=== PATIENT | female | born 1980 | race Caucasian/White ===

== ENCOUNTER → 2017-11-29 | Outpatient (CLI) | payer OTHER | LOC: M RAD 16:29 | DX: J01.01 Acute recurrent maxillary sinusitis (principal) | CPT/HCPCS: 70486 ==

== ENCOUNTER → 2018-02-27 | Outpatient (CLI) | payer OTHER ==
--- NOTE | 2018-02-27 17:00 | REP ---
MAXILLOFACIAL CT WITHOUT CONTRAST: HISTORY: Chronic frontal sinusitis. COMPARISON: 11/29/2017. The patient is status-post bilateral uncinectomy, partial ethmoidectomy and partial right middle and left inferior nasal turbinectomy. Mild mucosal thickening is present in the right maxillary sinus. Minimal mucosal thickening is present in the right ethmoid sinus. Mucosal thickening is present in the left frontal sinus. There is complete opacification of the left frontal sinus . The remaining sinuses are clear. The middle and right inferior nasal turbinates are partially paradoxical. The nasal septum is midline. The cribriform plate, medial albert of the orbits and optic canals are intact. There is aeration of the right anterior clinoid process. The carotid canals form a segment of the posterolateral albert of the sphenoid sinus. IMPRESSION: 1. Postoperative change as described above. 2. Sinus mucosal thickening as described above. Electronically Signed by Jay Crandall MD 02/28/2018 08:17 A
== END ==
LOC: M RAD 15:49
PROVIDERS: ATTEND Otolaryngology
DX: J32.1 Chronic frontal sinusitis (principal)

== ENCOUNTER 2018-08-09 19:05 | Emergency (ER) | payer OTHER ==
[~2018-08-09] VITALS: Ht 167.6 cm; Wt 63.6 kg
[2018-08-09] MEDS ORDERED: hygroton PO (19:13)
[2018-08-09] MEDS ORDERED: PYRI1TAB5 PO (19:13)
[2018-08-09] MEDS ORDERED: EXCETAB33 PO (19:13)
[2018-08-09] MEDS ORDERED: CYMB1CAP4 PO (19:13)
[2018-08-09] MEDS ORDERED: MACR100C43 PO (19:13)
[2018-08-09] MEDS ORDERED: hy (19:13)
[2018-08-09 19:53] LABS: BASO % 1.2 % (0.0-1.0); EOS # 0.3 10^3/uL (0.0-0.50); EOS % 7.5 % (0.0-3.0); HEMATOCRIT 34.4 % (36.0-47.0); HEMOGLOBIN 11.4 g/dl (12.0-15.5); LYMPH % 28.4 % (24.0-44.0); MEAN CORPUSCULAR HEMOGLOBIN 26.3 pg (27.0-33.0); MEAN CORPUSCULAR HGB CONC 33.1 g/dl (32.0-36.5); MEAN CORPUSCULAR VOLUME 79.4 fl (80.0-96.0); MONO # 0.6 10^3/uL (0.0-0.8); MONO % 17.6 % (0.0-5.0); NEUTROPHILS # 1.5 10^3/uL (1.8-7.7); PLATELET COUNT, AUTOMATED 204 10^3/uL (150-450); RED BLOOD COUNT 4.33 10^6/uL (4.00-5.40); WHITE BLOOD COUNT 3.4 10^3/uL (4.0-10.0)
[2018-08-09 20:16] LABS: APPEARANCE, URINE MANUAL HAZY (CLEAR)
[2018-08-09 20:17] LABS: COLOR, URINE MANUAL ORANGE (YELLOW); SPECIFIC GRAVITY,URINE MANUAL 1.015 (1.002-1.035)
[2018-08-09 20:27] LABS: BACTERIA, URINE SMALL AMOUNT; RBC, URINE TNTC /hpf (0-3)
[2018-08-09 20:28] LABS: SQUAMOUS EPITHELIAL CELL URINE MOD AMOUNT /hpf (SMALL AMT)
[2018-08-09 20:31] LABS: ALBUMIN 3.5 GM/DL (3.2-5.2); ALT/SGPT 52 U/L (12-78); BILIRUBIN,DIRECT < 0.1 MG/DL (0.0-0.2); BILIRUBIN,TOTAL 0.4 MG/DL (0.2-1.0); BLOOD UREA NITROGEN 22 MG/DL (7-18); CALCIUM LEVEL 9.4 MG/DL (8.5-10.1); CARBON DIOXIDE LEVEL 30 MEQ/L (21-32); CHLORIDE LEVEL 102 MEQ/L (98-107); CREATININE FOR GFR 1.14 MG/DL (0.55-1.30); GLOMERULAR FILTRATION RATE 56.8 (>60); GLUCOSE, FASTING 102 MG/DL (70-100); LIPASE 262 U/L (73-393); POTASSIUM SERUM 3.1 MEQ/L (3.5-5.1); SODIUM LEVEL 139 MEQ/L (136-145); TOTAL PROTEIN 7.7 GM/DL (6.4-8.2)
[2018-08-09 21:10] LABS: HCG, SERUM QUALITATIVE NEGATIVE (NEGATIVE)
[2018-08-09] MEDS ORDERED: ONDANSETRON 4MG/2ML VIAL (J2405) IV ONE (21:15)
[2018-08-09] MEDS ORDERED: KETOROLAC 30 MG/ML VIAL (J1885) IV ONE (21:15)
[2018-08-09] MEDS ORDERED: NS 1,000 ML IV ONE (21:45)
--- NOTE | 2018-08-09 23:01 | REPVR ---
EXAM: US Pelvis Complete, Transabdominal EXAM DATE/TIME: 08/09/2018 9:54 PM CLINICAL HISTORY: 38 years old, female; Abdominal pain; Left lower quadrant; Additional info: Pelvic pain TECHNIQUE: Imaging protocol: Real-time transabdominal pelvic ultrasound with image documentation. Complete exam. COMPARISON: No relevant prior studies available. FINDINGS: Uterus/cervix: Anteverted uterus deviated to the right measuring 9.1 x 3.4 x 4.7 cm. Endometrial stripe is normal measuring 1.4 mm. Right adnexa: Right ovary is unremarkable measuring 2.8 x 1.7 x 2.9 cm. Normal vascular flow. No evidence of torsion. Left adnexa: Left ovary is unremarkable measuring 3.3 x 0.9 x 2.7 cm.Normal vascular flow. No evidence of torsion. Free fluid: No free fluid. IMPRESSION: Unremarkable exam. Electronically signed by: Irena Toure On 08/09/2018 23:00:50 PM
--- NOTE | 2018-08-09 23:07 | REPVR ---
EXAM: CT Abdomen and Pelvis Without Contrast EXAM DATE/TIME: 08/09/2018 9:54 PM CLINICAL HISTORY: 38 years old, female; Abdominal pain; Flank; Left; Prior surgery; Additional info: History of kidney stones, RO stone TECHNIQUE: Imaging protocol: Axial computed tomography images of the abdomen and pelvis without contrast. Coronal and sagittal reformatted images were created and reviewed. Radiation optimization: All CT scans at this facility use at least one of these dose optimization techniques: automated exposure control; mA and/or kV adjustment per patient size (includes targeted exams where dose is matched to clinical indication); or iterative reconstruction. COMPARISON: No relevant prior studies available. FINDINGS: Lungs: Multiple lung nodules, left greater than right. On the right side largest nodule is with irregular margins measuring up to 7 mm and on the left side largest nodules measuring up to 6 mm. Comparison with prior studies and absence of prior studies further evaluation with CT chest is recommended. Liver: Normal. No mass. Gallbladder and bile ducts: Normal. No calcified stones. No ductal dilation. Pancreas: Normal. No ductal dilation. Spleen: Normal. No splenomegaly. Adrenals: Normal. No mass. Kidneys and ureters: Multiple bilateral nonobstructing renal stones measuring up to 2 mm. No evidence of hydroureteronephrosis. No hydroureteronephrosis. No perinephric stranding. Stomach and bowel: Moderate fecal loading in the rectum and colon. No bowel dilatation or obstruction. No bowel dilatation or obstruction. Appendix: Normal appendix. Intraperitoneal space: Normal. No free air. No significant fluid collection. Vasculature: Normal. No abdominal aortic aneurysm. Lymph nodes: Normal. No enlarged lymph nodes. Bladder: Sone in the base of the bladder on the left side measuring about 4.6 mm. Reproductive: Unremarkable as visualized. Bones/joints: A sclerotic focus in the left pubic symphysis measuring approximately 10.4 mm cyst likely represent bone island. Soft tissues: Unremarkable. IMPRESSION: 1. Sone in the base of the bladder on the left side measuring about 4.6 mm. 2. Multiple bilateral nonobstructing renal stones measuring up to 2 mm. No evidence of hydroureteronephrosis. 3. Multiple lung nodules, left greater than right. On the right side largest nodule is with irregular margins measuring up to 7 mm and on the left side largest nodules measuring up to 6 mm. Comparison with prior studies and absence of prior studies further evaluation with CT chest is recommended. Electronically signed by: Irena Toure On 08/09/2018 23:07:34 PM
[2018-08-10] MEDS ORDERED: FLOM0.4C39 PO (01:18)
[2018-08-10 01:24] VITALS: BP 123/83
--- NOTE | 2018-08-10 08:27 | ED PDOC ---
Post-Departure Follow-Up ct abd/p faxed to rahul aleman for fu Tracy Loya MD Aug 10, 2018 08:27
== END 2018-08-10 01:27 | disposition home or self-care (01) ==
LOC: M ED 19:05
DX: N20.0 Calculus of kidney (principal); R91.1 Solitary pulmonary nodule; I10 Essential (primary) hypertension; F41.9 Anxiety disorder, unspecified; Z79.899 Other long term (current) drug therapy; Z79.82 Long term (current) use of aspirin; Z88.1 Allergy status to other antibiotic agents; Z88.5 Allergy status to narcotic agent
CPT/HCPCS: 74176; 76856; 80048; 80076; 81000; 83690; 84703; 85025; 93976; 96374; 96375; 99284; J1885; J2405

== ENCOUNTER → 2018-08-09 | Outpatient (REF) | payer OTHER ==
[~2018-08-09] MED LIST: CYMB1CAP4 PO; EXCETAB33 PO; FLOM0.4C39 PO; MACR100C43 PO; PYRI1TAB5 PO; hy; hygroton PO
== END ==
LOC: M LAB REF 19:10
PROVIDERS: ATTEND Physician Assistant Medical
DX: N39.0 Urinary tract infection, site not specified (principal)

== ENCOUNTER → 2018-08-22 | Outpatient (CLI) | payer OTHER ==
[~2018-08-22] MED LIST changes: +PROAAER10 INH
--- NOTE | 2018-08-22 15:25 | REP ---
Clinical: Follow-up pulmonary nodules. Technique: Axial noncontrast images from the thoracic inlet to the upper abdomen with coronal and sagittal re-formations. Comparison: None available. Findings: Diffuse bilateral innumerable pulmonary nodules measure up to approximately 11 mm. Differential diagnosis would include metastatic disease, diffuse septic emboli, as well as granulomatous/inflammatory pulmonary diseases including Shelia's granulomatosis. Adenopathy is suspected. No pleural effusion. No pneumothorax. Tracheobronchial tree is patent. Mediastinum demonstrates normal thoracic aorta, pulmonary vasculature and heart/pericardium. Impression: Innumerable bilateral pulmonary nodules. Pulmonology consultation warranted. Electronically Signed by Shekhar Carroll MD 08/22/2018 03:17 P
== END ==
LOC: M RAD 14:24
PROVIDERS: ATTEND Student in an Organized Health Care Education/Training Program
DX: R91.8 Other nonspecific abnormal finding of lung field (principal)

== ENCOUNTER 2018-09-19 12:10 | Day surgery (SDC) | payer OTHER ==
[~2018-09-19] VITALS: Ht 167.6 cm; Wt 63.5 kg
[~2018-09-19 12:10] MED LIST changes: +D5W 1,000 ML IV SCH
[2018-09-19] MEDS ORDERED: CETACAINE SPRAY 5GM As Ordered ONE (12:56)
[2018-09-19] MEDS ORDERED: fentaNYL 100 MCG/2 ML INJECTION (J3010) As Ordered ONE (13:06)
[2018-09-19] MEDS ORDERED: MIDAZOLAM INJ 2 MG/2 ML VIAL (J2250) As Ordered ONE (13:07)
[2018-09-19] MEDS ORDERED: MIDAZOLAM INJ 2 MG/2 ML VIAL (J2250) IV ONE ×2 (13:18→14:30)
[2018-09-19] MEDS ORDERED: THROMBIN SOLN 5,000 UNITS VIAL As Ordered ONE ×2 (13:33→14:21)
--- NOTE | 2018-09-19 14:00 | RO ---
DATE OF PROCEDURE: 09/19/2018 PREOPERATIVE DIAGNOSIS: Abnormal CT scan. POSTOPERATIVE DIAGNOSIS: Abnormal CT scan. PROCEDURE: Fiberoptic bronchoscopy with endobronchial and transbronchial biopsies under fluoroscopic guidance. SURGEON: Dr. Ariel Collazo VESSEL SPECIALIST: ANESTHESIA: Conscious sedation with 5 mg of intravenous Versed and 50 mcg of intravenous Fentanyl given sequentially and titrated for effect. Local anesthesia was 2% viscous Xylocaine in the nose and Cetacaine [place] in the pharynx and 1% Xylocaine via the bronchoscope. OTHER MEDICATIONS: Topical Thrombin 10,000 units. OPERATIVE FINDINGS: Diffuse airway involvement with mild submucosal areas of abnormality and airway edema. DESCRIPTION OF PROCEDURE: After the patient was identified and the above anesthesia given, the fiberoptic bronchoscope was easily passed via the right nares. The hypopharynx was entered and appeared normal. Vocal cords were normal. Trachea was widely patent. Yeni was mildly broadened, but did move. Both main stem bronchi widely patent. Left lung was entered first. In a sequential fashion, upper and lower lobes easily identified and widely patent. Diffuse airway involvement was noted with some submucosal infiltration and mild edema. Attention was then turned to the right. Upper, middle and lower lobes again easily identified and widely patent. Again, submucosal findings similar to the left were noted. Under fluoroscopic guidance, transbronchial biopsy was taken of the right upper lobe. Bleeding was encountered that required 10,000 units topical Thrombin for control. Due to this, no further transbronchial biopsies were obtained. Multiple endobronchial biopsies were taken of one of the mucosal areas in the right lower lobe. No significant bleeding encountered with that. When good hemostasis was achieved, the scope was withdrawn and the procedure terminated. Fluoroscopic examination immediately post procedure showed no evidence of pneumothorax. The patient was taken to the recovery area in good and stable condition. No immediate complications of conscious sedation were identified. DANIEL
[2018-09-19] MEDS ORDERED: THROMBIN SOLN 5,000 UNITS VIAL XX ONE (14:30)
[2018-09-19] MEDS ORDERED: fentaNYL 100 MCG/2 ML INJECTION (J3010) IV PRN (14:30)
[2018-09-19] MEDS ORDERED: fentaNYL 100 MCG/2 ML INJECTION (J3010) IV ONE (14:30)
[2018-09-19 15:00] VITALS: BP 130/78
--- NOTE | 2018-09-19 15:11 | REP ---
Clinical: Post bronchoscopy. Comparison: None. Findings: Diffuse bilateral reticular nodular infiltrates are identified. No effusion. No pneumothorax. Mediastinum and cardiac silhouette are normal. Skeletal structures are intact. Impression: Diffuse bilateral reticulonodular alveolar infiltrates. Electronically Signed by Shekhar Carroll MD 09/19/2018 03:03 P
[2018-09-19] MEDS ORDERED: MIDAZOLAM INJ 2 MG/2 ML VIAL (J2250) IV PRN (15:30)
== END 2018-09-19 15:18 | disposition home or self-care (01) ==
LOC: M OPP 12:10
PROVIDERS: ATTEND Internal Medicine Pulmonary Disease
DX: R91.8 Other nonspecific abnormal finding of lung field (principal); R06.02 Shortness of breath; R06.2 Wheezing; F41.9 Anxiety disorder, unspecified; I10 Essential (primary) hypertension; Z87.891 Personal history of nicotine dependence; Z79.899 Other long term (current) drug therapy; Z88.5 Allergy status to narcotic agent; Z88.1 Allergy status to other antibiotic agents
CPT/HCPCS: 31625; 71045; 76000; 88305; 88312; J2250; J3010

== ENCOUNTER → 2018-10-18 | Outpatient (REF) | payer OTHER ==
[~2018-10-18] MED LIST changes: -D5W 1,000 ML IV SCH
[2018-10-18 13:37] LABS: APPEARANCE, URINE CLOUDY (CLEAR); BACTERIA, URINE AUTO 1+ (NEGATIVE); BILIRUBIN, URINE AUTO NEGATIVE (NEGATIVE); BLOOD, URINE BLOOD NEGATIVE (NEGATIVE); COLOR, URINE YELLOW (YELLOW); GLUCOSE, URINE (UA) AUTO NEGATIVE (NEGATIVE); KETONE, URINE AUTO NEGATIVE (NEGATIVE); LEUKOCYTE ESTERASE, URINE AUTO 3+ (NEGATIVE); NITRITE, URINE AUTO POSITIVE (NEGATIVE); PROTEIN, URINE AUTO NEGATIVE (NEGATIVE); RBC, URINE AUTO 18 /HPF (0-3); SPECIFIC GRAVITY URINE AUTO 1.016 (1.002-1.035); SQUAMOUS EPITHELIAL CELL UR AU 3 /HPF (0-6); UROBILINOGEN, URINE AUTO 0.2 mg/dL (0.0-2.0); WBC, URINE AUTO 177 /HPF (0-3)
== END ==
LOC: M SMT 12:58
PROVIDERS: ATTEND Nurse Practitioner Women's Health
DX: N20.0 Calculus of kidney (principal); R39.89 Other symptoms and signs involving the genitourinary system
CPT/HCPCS: 81001; 87088; 87186; G0463

== ENCOUNTER → 2018-10-19 | Outpatient (CLI) | payer OTHER | LOC: M RAD 08:24 | PROVIDERS: ATTEND Nurse Practitioner Women's Health | DX: N20.0 Calculus of kidney (principal) ==

== ENCOUNTER → 2018-11-06 | Outpatient (CLI) | payer OTHER ==
--- NOTE | 2018-11-07 03:22 | REP ---
Clinical: Sarcoidosis. Technique: PA and lateral. Comparison: 09/19/2018. Findings: Scattered reticulonodular interstitial changes are again appreciated but appear relatively improved as compared to prior examination. No obvious significant adenopathy identified by radiographic evaluation. The mediastinum and cardiac silhouette are within normal limits. No effusion. No pneumothorax. Skeletal structures are intact. Impression: Reticulonodular interstitial disease consistent with sarcoidosis. No obvious adenopathy. Electronically Signed by Shekhar Carroll MD 11/07/2018 03:14 A
== END ==
LOC: M SMT 15:42
PROVIDERS: ATTEND Internal Medicine Pulmonary Disease
DX: D86.2 Sarcoidosis of lung with sarcoidosis of lymph nodes (principal)

== ENCOUNTER → 2018-12-11 | Outpatient (REF) | payer OTHER ==
[2018-12-11 19:50] LABS: APPEARANCE, URINE CLEAR (CLEAR); BACTERIA, URINE AUTO NEGATIVE (NEGATIVE); BILIRUBIN, URINE AUTO NEGATIVE (NEGATIVE); BLOOD, URINE BLOOD NEGATIVE (NEGATIVE); COLOR, URINE YELLOW (YELLOW); GLUCOSE, URINE (UA) AUTO NEGATIVE (NEGATIVE); KETONE, URINE AUTO NEGATIVE (NEGATIVE); LEUKOCYTE ESTERASE, URINE AUTO NEGATIVE (NEGATIVE); MUCUS, URINE SMALL (NEGATIVE); NITRITE, URINE AUTO NEGATIVE (NEGATIVE); PROTEIN, URINE AUTO NEGATIVE (NEGATIVE); RBC, URINE AUTO 0 /HPF (0-3); SPECIFIC GRAVITY URINE AUTO 1.026 (1.002-1.035); SQUAMOUS EPITHELIAL CELL UR AU 4 /HPF (0-6); UROBILINOGEN, URINE AUTO 0.2 mg/dL (0.0-2.0); WBC, URINE AUTO 1 /HPF (0-3)
== END ==
LOC: M SMT 18:04
PROVIDERS: ATTEND Nurse Practitioner Women's Health
DX: N39.0 Urinary tract infection, site not specified (principal)
CPT/HCPCS: 81001; 87086; G0463

== ENCOUNTER → 2018-12-25 | Outpatient (CLI) | payer OTHER ==
--- NOTE | 2018-12-26 02:11 | REP ---
Clinical: Kidney stone. Technique: Single supine view of the abdomen and pelvis. Findings: Evaluation of the urinary tract system is severely limited due to significant overlying fecal stasis and possible constipation. Small left intrarenal calculus approximately 2 mm upper pole is suspected. Impression: Very limited examination due to fecal stasis and constipation. Possible 2 mm left upper pole renal calculus. Electronically Signed by Shekhar Carroll MD 12/26/2018 02:02 A
== END ==
LOC: M LRY 15:37
PROVIDERS: ATTEND Nurse Practitioner Women's Health
DX: N20.0 Calculus of kidney (principal)

== ENCOUNTER → 2019-01-10 | Outpatient (CLI) | payer OTHER ==
--- NOTE | 2019-01-11 19:11 | REP ---
CT chest without contrast: History: Sarcoidosis of the lung and lymph nodes. Comparison chest CT study August 22, 2018. CT findings: There has been significant improvement in the previously noted pattern of innumerable shaggy bilateral pulmonary nodules. There are still numerous nodules noted. These have decreased in number and in size substantially since the prior study. There are scattered normal-sized mediastinal lymph nodes. The largest of these is in the AP window region of the mediastinum displaying a short axis dimension of 7 mm. Previously the short axis dimension of this lymph node was 9 mm. No definite adenopathy. No pleural or pericardial effusion is seen. No focal bony destructive lesion is appreciated. The visualized portions of the liver and spleen are normal in size homogeneous in texture. There are intrarenal calculi in the upper poles of each kidney without hydronephrosis. Visualized upper abdominal structures are otherwise unremarkable. Impression: Significant interval improvement in pulmonary parenchymal nodular lesions. Electronically Signed by Shawn Amaral MD 01/11/2019 07:41 P
== END ==
LOC: M RAD 08:21
PROVIDERS: ATTEND Internal Medicine Pulmonary Disease
DX: D86.2 Sarcoidosis of lung with sarcoidosis of lymph nodes (principal)

== ENCOUNTER → 2019-04-18 | Outpatient (CLI) | payer OTHER ==
--- NOTE | 2019-04-18 19:41 | REP ---
CHEST, TWO VIEWS: Two views of the chest are performed. COMPARISON: 11/06/2018. There are bilateral reticulonodular opacities in the mid and lower lung zones which appear similar to the prior exam. Heart is normal in size. Mediastinal silhouette is unchanged. Visualized osseous structures are unremarkable. IMPRESSION: Stable bilateral reticulonodular densities. Electronically Signed by Kvng Howard MD 04/19/2019 10:29 A
== END ==
LOC: M LAB 16:21
PROVIDERS: ATTEND Internal Medicine Pulmonary Disease
DX: D86.0 Sarcoidosis of lung (principal); D86.1 Sarcoidosis of lymph nodes

== ENCOUNTER → 2020-08-15 | Outpatient (REF) | payer OTHER | LOC: M LAB REF 16:59 | PROVIDERS: ATTEND Internal Medicine Nephrology | DX: E67.3 Hypervitaminosis D (principal); D86.9 Sarcoidosis, unspecified; Z87.442 Personal history of urinary calculi ==

== ENCOUNTER → 2020-09-10 | Outpatient (CLI) | payer OTHER ==
--- NOTE | 2020-09-10 08:44 | REPMRS ---
Patient History The patient states she has not had a clinical breast exam in over a year. Baseline No known family history of cancer. Reductions of both breasts, 2008. Tomosynthesis is performed. [place] breast [facility] b[facility] Patient states no breast complaints today. Patient has signed MRS History Sheet. Digital Woman Screen Mammo: September 10, 2020 - Exam #: [id number] Bilateral CC and MLO view(s) were taken. Technologist: Madonna Grant, Technologist FINDINGS: There are scattered fibroglandular densities. There is a mild amount of residual fibroglandular tissue which is fairly symmetric. There is no dominant mass, architectural distortion, or clustered microcalcification suggestive of malignancy. Assessment: BI-RADS/ACR category 1 mammogram. Negative Mammogram. Recommendation Routine screening mammogram in 1 year (for women over age 40). This mammogram was interpreted with the aid of an FDA-approved computer-aided dectection system. Electronically Signed By: Kvng Howard MD 09/10/20 [id number]
== END ==
LOC: M WHC 07:34
PROVIDERS: ATTEND Nurse Practitioner Primary Care
DX: Z12.31 Encounter for screening mammogram for malignant neoplasm of breast (principal)

== ENCOUNTER → 2020-10-02 | Outpatient (REF) | payer OTHER | LOC: M LAB REF 13:37 | PROVIDERS: ATTEND Internal Medicine Nephrology | DX: E83.42 Hypomagnesemia (principal) ==

== ENCOUNTER → 2020-11-11 | Outpatient (CLI) | payer OTHER ==
--- NOTE | 2020-11-11 17:29 | REP ---
INDICATION: SARCOIDOSIS COMPARISON: Multiple the latest 01/11/2019 TECHNIQUE: Standard helical technique without intravenous contrast administration. . FINDINGS: The mediastinum and pulmonary leanne are within normal limits although seen in limited fashion. There are no pleural or pericardial effusions. The imaged upper abdomen again shows bilateral nephroliths status quo. There is no evidence of obstructive phenomena seen in the imaged portions of the kidneys. There is no significant change in appearance of the imaged osseous structures. Evaluation of the lung macias shows scattered asymmetric parenchymal densities with peripheral predominance and in the right upper lobe and right middle lobe and scattered diffusely in the lung bases. These irregular nodular densities are too numerous to count or individually assess. The have increased rather significantly in the lung bases compared to the latest prior exam. IMPRESSION: Increased lung parenchymal densities, as described above, consistent with the patient's diagnosis of sarcoidosis. <Electronically signed by Akil Simons > 11/11/20 1700
== END ==
LOC: M RAD 16:29
PROVIDERS: ATTEND Internal Medicine Pulmonary Disease
DX: D86.2 Sarcoidosis of lung with sarcoidosis of lymph nodes (principal)

== ENCOUNTER → 2020-11-18 | Outpatient (CLI) | payer OTHER ==
--- NOTE | 2020-11-18 15:30 | PFTRPT ---
Height: 66.00 Inches Weight: 157.00 Lbs BSA: 1.80 Diagnosis: J45.40 DATE: 11/18/2020 ORDERING PHYSICIAN: Ariel Collazo MD Studies have excellent technical quality. Forced vital capacity is normal. FEV1 is in proportion. Obstructive index is therefore normal. Expiratory limit of the flow-volume loop is normal. Total lung capacity is normal. Residual volume is in proportion. Diffusing capacity is normal. Hemoglobin is reduced at 10.2. Airway resistance and conductance are normal. IMPRESSION: Underlying anemia, otherwise normal study. Please correlate clinically. MTDD
== END ==
LOC: M CARPUL 14:55
PROVIDERS: ATTEND Internal Medicine Pulmonary Disease
DX: J45.40 Moderate persistent asthma, uncomplicated (principal)

== ENCOUNTER → 2021-09-15 | Outpatient (CLI) | payer OTHER ==
[~2021-09-15] MED LIST changes: +EXCETAB32 PO; -EXCETAB33 PO
== END ==
LOC: M WHC 13:24
PROVIDERS: ATTEND Nurse Practitioner Primary Care
DX: Z12.31 Encounter for screening mammogram for malignant neoplasm of breast (principal)

== ENCOUNTER → 2022-05-19 | Outpatient (CLI) | payer OTHER ==
[~2022-05-19] MED LIST changes: +ISOVUE-300 61% 100ML VIAL ONE; +LIDOCAINE 1% MDV 20ML VIAL ONE; +PROHANCE 279.3MG/ML 5ML VIAL ONE
== END ==
LOC: M PLAIMG 14:22
PROVIDERS: ATTEND Nurse Practitioner Primary Care
DX: M25.512 Pain in left shoulder (principal); S46.012A Strain of muscle(s) and tendon(s) of the rotator cuff of left shoulder, initial encounter; X58.XXXA Exposure to other specified factors, initial encounter; Y92.9 Unspecified place or not applicable
CPT/HCPCS: 23350; 73223; 76000; A9576; Q9967

== ENCOUNTER → 2022-09-16 | Outpatient (CLI) | payer OTHER ==
[~2022-09-16] MED LIST changes: -ISOVUE-300 61% 100ML VIAL ONE; -LIDOCAINE 1% MDV 20ML VIAL ONE; -PROHANCE 279.3MG/ML 5ML VIAL ONE
== END ==
LOC: M WHC 08:29
PROVIDERS: ATTEND Nurse Practitioner Primary Care
DX: Z12.31 Encounter for screening mammogram for malignant neoplasm of breast (principal)

== ENCOUNTER → 2022-10-15 | Outpatient (REF) | payer OTHER ==
[2022-10-18 18:43] LABS: PERCENT SATURATION 3.9 % (13.2-45.0)
[2022-10-18 18:46] LABS: FERRITIN 5.8 NG/ML (7.3-270.7)
== END ==
LOC: M LAB REF 17:15
PROVIDERS: ATTEND Internal Medicine Nephrology
DX: D50.9 Iron deficiency anemia, unspecified (principal)

== ENCOUNTER 2022-11-02 13:26 | Outpatient (CLI) | payer OTHER ==
[~2022-11-02] VITALS: Ht 167.6 cm; Wt 73.6 kg
[~2022-11-02 13:26] MED LIST changes: +ALBUTEROL SULFATE 2.5MG/0.5ML INH NEB SOLN INH PRN; +EPINEPHrine INJ 1 MG/ML 1ML AMP IM PRN; +diphenhydrAMINE 50MG/ML VIAL IV PRN; +methylPREDNISolone 125MG 2ML VIAL IV PRN
[2022-11-02 13:35] VITALS: BP 129/87; O2SAT 99
[2022-11-02] MEDS ORDERED: FERRIC CARBOXYMALTOSE INJ 750 MG in NS 250 ML (>50kg) IV ONE ×3 (13:45)
[2022-11-02] MEDS ORDERED: NS 1,000 ML IV SCH (13:45)
[2022-11-02] MEDS ORDERED: ADV100INH INH (14:01)
[2022-11-02] MEDS ORDERED: POTA10CA60 PO (14:02)
[2022-11-02] MEDS ORDERED: OMEP40CA4 PO (14:05)
[2022-11-02] MEDS ORDERED: PAXI20TA30 PO (14:05)
[2022-11-02] MEDS ORDERED: NORV5TAB PO (14:05)
[2022-11-02] MEDS ORDERED: CHLO125TA PO (14:05)
[2022-11-02] MEDS ORDERED: POTA10808 PO (14:05)
[2022-11-02 15:25] VITALS: BP 129/79; O2SAT 100
== END 2022-11-02 15:30 | disposition home or self-care (01) ==
LOC: M INFU 13:26
PROVIDERS: ATTEND Internal Medicine Nephrology
DX: E61.1 Iron deficiency (principal); Z88.1 Allergy status to other antibiotic agents; Z88.5 Allergy status to narcotic agent; Z88.8 Allergy status to other drugs, medicaments and biological substances
CPT/HCPCS: 96365; J1439

== ENCOUNTER 2022-11-09 15:30 | Outpatient (CLI) | payer OTHER ==
[2022-11-09 15:25] VITALS: BP 124/79; O2SAT 100
[~2022-11-09 15:30] MED LIST changes: +ADV100INH INH; +CHLO125TA PO; +FERRIC CARBOXYMALTOSE INJ 750 MG in NS 250 ML (>50kg) IV ONE; +NORV5TAB PO; +NS 1,000 ML IV SCH; +OMEP40CA4 PO; +PAXI20TA30 PO; +POTA10808 PO; +POTA10CA60 PO
[2022-11-09 16:50] VITALS: BP 132/86; O2SAT 100
== END 2022-11-09 16:50 | disposition home or self-care (01) ==
LOC: M INFU 15:30
PROVIDERS: ATTEND Internal Medicine Nephrology
DX: E61.1 Iron deficiency (principal); Z88.1 Allergy status to other antibiotic agents; Z88.5 Allergy status to narcotic agent
CPT/HCPCS: 96365; J1439